=== PATIENT | male | born 1995 | race Caucasian/White ===

== ENCOUNTER 2019-01-13 18:54 | Emergency (ER) | payer SELFPAY ==
[~2019-01-13 18:54] MED LIST: Iopamidol 370 76% 100 ML VIAL ONE; Sodium Chloride 0.9% 1,000 ML BAG ONE; Sodium Chloride 0.9% 100 ML BAG ONE
[2019-01-13] MEDS ORDERED: Ondansetron PF 4 MG/2 ML Vial ONE (19:54)
[2019-01-13] MEDS ORDERED: Sodium Chloride 0.9% 1,000 ML ONE (19:54)
[2019-01-13] MEDS ORDERED: Pantoprazole 40 MG VIAL ONE (19:54)
[2019-01-13 19:59] LABS: #Basophils 0.1 thou/uL (0.0-0.2); #Eosinphils 0.1 thou/uL (0.0-0.7); #Lymphocytes 1.6 thou/uL (1.20-3.40); #Monocytes 0.9 thou/uL (0.11-0.59); #Neutrophils 10.6 thou/uL (1.40-6.50); %Basophils 0.6 % (0.0-1.0); %Eosinophils 1.1 % (0.0-10.0); %Lymphocytes 12.2 % (21.0-51.0); %Monocytes 6.8 % (0.0-10.0); %Neutrophils 79.2 % (42.0-75.0); Hemoglobin 15.7 g/dL (14.0-18.0); Mean Corpuscular HGB CONC 33.7 g/dL (32.0-36.0); Mean Corpuscular Hemoglobin 28.4 pg (27.0-31.0); Mean Corpuscular Volume 84.3 fL (78.0-98.0); Mean Platelet Volume 5.9 fL (7.4-10.4); Platelet Count 235 thou/uL (130-400); RBC Distribution Width 11.6 % (11.5-14.5); Red Blood Cell (RBC) Count 5.54 mill/uL (4.70-6.10); White Blood Cell (WBC) Count 13.4 thou/uL (4.8-10.8)
[2019-01-13 20:17] LABS: ALT (SGPT) 29 U/L (8-55); AST (SGOT) 29 U/L (5-34); Albumin 4.6 g/dL (3.5-5.0); Alkaline Phosphatase 74 U/L (40-150); Anion Gap 22 mmol/L (10-20); BUN (Urea Nitrogen) 15 mg/dL (8.9-20.6); Bilirubin, Total 0.5 mg/dL (0.2-1.2); CK (CPK) 119 U/L (30-200); Calc. Creatinine Clearance 0 mL/min (70-130); Calcium 9.6 mg/dL (7.8-10.44); Carbon Dioxide 19 mmol/L (22-29); Chloride 101 mmol/L (98-107); Estimated GFR-MDRD Greater than 90; Globulin 2.8 g/dL (2.4-3.5); Glucose 96 mg/dL (70-105); Lipase 17 U/L (8-78); Protein, Total 7.4 g/dL (6.0-8.3); Sodium 138 mmol/L (136-145)
[2019-01-13] MEDS ORDERED: Piperacillin/Tazobactam 3.375 GM VIAL ONE (20:20)
[2019-01-13] MEDS ORDERED: Sodium Chloride 0.9% 100 ML ONE (20:20)
--- NOTE | 2019-01-13 20:23 | RAD ---
RADIOGRAPH CHEST 1 VIEW RADIOGRAPH ABDOMEN 2 VIEWS: Date: 01/13/19 HISTORY: 23-year-old male with abdominal pain. FINDINGS: Lungs are clear. Cardiomediastinal silhouette is normal. Lateral costophrenic angles are sharp. No pn eumothorax or pneumoperitoneum. No evidence of organomegaly. Multiple air fluid levels and multiple p rominent air filled loops of colon. Possibly some air fluid levels in the small intestine. IMPRESSION: 1. Ileus versus gastroenteritis. 2. Normal chest. JN [] POS: [facility]
[2019-01-13] MEDS ORDERED: Promethazine HCl 25 MG/ML VIAL ONE (21:04)
--- NOTE | 2019-01-13 21:39 | CT ---
CT ABDOMEN AND PELVIS WITH IV CONTRAST 01/13/19 HISTORY: Abdominal pain, nausea, vomiting, diarrhea. FINDINGS: No comparison. Lung bases are clear. Solid organs of the abdomen are unremarkable. The urinary blad julian is incompletely distended. Small amount of free fluid within the lower abdomen and pelvis. Gas and stool are present throughout the colon and rectum. Throughout the abdomen, there are scattere d areas of markedly distended fluid filled small bowel loops, some with thickening of the bowel wall. These measure up to 5.7 cm diameter. No transition point to decompress bowel is evident. There is go od contrast opacification of the portal venous system. IMPRESSION: Markedly abnormal small bowel with multifocal areas of bowel dilatation and wall thickening suggestiv e of inflammation. Appearance is not that of obstruction. Cause is not evident. Small amount of free is also apparent. Consider inflammatory bowel disease versus some vascular abnormality/vasculitis. POS: [facility]
[2019-01-13 23:19] LABS: Bilirubin Negative (Negative); Blood, Urine Negative (Negative); Glucose, Urine (Dipstick) Negative (Negative); Leukocyte Negative (Negative); Nitrite Negative (Negative); Protein, Urine (Dipstick) Trace mg/dL (Neg-Trace); Urobilinogen 0.2 mg/dL (0.2-1.0)
[2019-01-13 23:27] LABS: Clarity Hazy (Clear)
[2019-01-13 23:39] LABS: Lactic Acid 0.6 mmol/L (0.5-2.2)
== END 2019-01-13 23:59 | disposition short-term general hospital (02) ==
LOC: MADERS 18:54
DX: R10.9 Unspecified abdominal pain (principal); R11.2 Nausea with vomiting, unspecified
CPT/HCPCS: 36415; 74022; 74177; 80053; 81003; 82150; 82550; 83605; 83690; 85025; 94760; 96361; 96365; 96367; 96375; C9113; J2405; J2543; J2550; J7050; Q9967